=== PATIENT | female | born 1945 | race Caucasian/White ===

== ENCOUNTER 2018-07-16 09:35 | Outpatient (CLI) | payer MEDICARE ==
--- NOTE | 2018-07-16 10:33 | RAD ---
KUB: Date: 07-16-18 Comparison: None. History: Constipation. FINDINGS: Supine imaging is provided, limiting assessment for free air and bowel obstruction. Course calcificat ions in the pelvis suggest calcified uterine fibroids. Bowel gas pattern appears nonobstructed. IMPRESSION: Nonobstructed bowel gas pattern. No obvious large volume stool seen on this examination although eval uation is somewhat limited secondary to paucity of bowel gas. POS: [facility]
[2018-07-16] MEDS ORDERED: Iopamidol 370 76% 50 ML VIAL FS ONE (11:19)
[2018-07-16] MEDS ORDERED: Iopamidol 370 76% 100 ML VIAL ONE (11:19)
--- NOTE | 2018-07-16 16:57 | CT ---
CT ABDOMEN AND PELVIS WITH IV AND ORAL CONTRAST: Date: 07/16/18 HISTORY: Abdomen and pelvic pain. FINDINGS: Right breast prosthesis partially visualized. The left renal collecting system and ureter are moderat camila distended to the distal left ureter where there are two adjacent calcifications, each approximate ly 0.4 cm diameter. The right renal collecting system, ureter, and urinary bladder are decompressed. An additional 0.3 cm calcification at the inferior pole of the left kidney. There are three tiny calc ifications within nondilated calices of the right kidney. Small hiatal hernia. Small cyst left liver lobe. Partially calcified uterine fibroid to the left of m idline is 5.4 cm. No evidence of bowel obstruction. Appendix is not inflamed. There are degenerative changes of the lum bar spine. IMPRESSION: 1. Partial obstruction at two adjacent 4 mm distal left ureteral calculi. 2. Additional smaller bilateral renal calculi. 3. Small hiatal hernia. 4. Large uterine fibroid. POS: [facility]
== END 2018-07-16 09:36 | disposition home or self-care (01) ==
LOC: SCSRAD 09:35 → CT 09:36
PROVIDERS: ATTEND Family Medicine
DX: K59.01 Slow transit constipation (principal); R10.84 Generalized abdominal pain; N20.2 Calculus of kidney with calculus of ureter; K44.9 Diaphragmatic hernia without obstruction or gangrene; D25.9 Leiomyoma of uterus, unspecified
CPT/HCPCS: 74018; 74177; 82565

== ENCOUNTER 2018-07-31 09:47 | Outpatient (CLI) | payer MEDICARE ==
[2018-07-31 10:55] LABS: Hemoglobin 14.3 g/dL (12.0-16.0); Mean Corpuscular HGB CONC 32.9 g/dL (32.0-36.0); Mean Corpuscular Hemoglobin 32.8 pg (27.0-31.0); Mean Corpuscular Volume 99.7 fL (78.0-98.0); Mean Platelet Volume 8.9 fL (7.4-10.4); Platelet Count 251 thou/uL (130-400); RBC Distribution Width 11.1 % (11.5-14.5); Red Blood Cell (RBC) Count 4.36 mill/uL (4.20-5.40)
[2018-07-31 11:00] LABS: Bilirubin Negative (Negative); Blood, Urine Small (Negative); Clarity CLOUDY (Clear); Glucose, Urine (Dipstick) Negative (Negative); Leukocyte Small (Negative); Nitrite Negative (Negative); Protein, Urine (Dipstick) Negative (Neg-Trace); Specific Gravity, Urine 1.013 (1.002-1.036); Urobilinogen 0.2 mg/dL (0.2-1.0); pH, Urine 7.5 (5.0-9.0)
[2018-07-31 11:01] LABS: INR-International Normal Ratio 0.9; Prothrombin Time 12.5 SEC (12.0-14.7)
[2018-07-31 11:02] LABS: Bacteria/HPF None Seen HPF (None Seen); Hyaline Casts/LPF 0-3 HYALINE CAST LPF (0-3 Hyaline); PTT 27.1 SEC (22.9-36.1); Squamous Epithelial 0-3 HPF (0-3); WBC/HPF 0-3 HPF (0-3)
[2018-07-31 11:20] LABS: Anion Gap 14 mmol/L (10-20); BUN (Urea Nitrogen) 14 mg/dL (9.8-20.1); Calc. Creatinine Clearance 0 mL/min (70-130); Calcium 10.9 mg/dL (7.8-10.44); Carbon Dioxide 25 mmol/L (23-31); Chloride 108 mmol/L (98-107); Estimated GFR-MDRD 70; Glucose 97 mg/dL (83-110); Potassium 5.6 mmol/L (3.5-5.1); Sodium 141 mmol/L (136-145)
--- NOTE | 2018-07-31 21:36 | EKG ---
Test Reason : Blood Pressure : / mmHG Vent. Rate : 080 BPM Atrial Rate : 080 BPM P-R Int : 128 ms QRS Dur : 080 ms QT Int : 368 ms P-R-T Axes : 080 075 070 degrees QTc Int : 424 ms Normal sinus rhythm Normal ECG No previous ECGs available Confirmed by JULIA MARTIN, DR. Carlisle ([id number]) on 07/31/2018 9:36:01 PM Referred By: LACEY Confirmed By:DR. Maylin DUMONT MD
== END 2018-07-31 09:48 | disposition home or self-care (01) ==
LOC: LABBT 09:47
PROVIDERS: ATTEND Urology
DX: Z01.818 Encounter for other preprocedural examination (principal); N20.1 Calculus of ureter
CPT/HCPCS: 80048; 81001; 85027; 85610; 85730; 87077; 87086; 87186; 93005; 93010

== ENCOUNTER 2018-08-08 06:03 | Day surgery (SDC) | payer MEDICARE ==
[2018-07-31 09:50] VITALS: BMI 23.3
[2018-08-08 07:46] LABS: Anion Gap 12 mmol/L (10-20); BUN (Urea Nitrogen) 12 mg/dL (9.8-20.1); Calc. Creatinine Clearance 58 mL/min (70-130); Calcium 10.6 mg/dL (7.8-10.44); Carbon Dioxide 26 mmol/L (23-31); Chloride 106 mmol/L (98-107); Estimated GFR-MDRD 65; Glucose 106 mg/dL (83-110); Potassium 4.2 mmol/L (3.5-5.1); Sodium 140 mmol/L (136-145)
[2018-08-08] MEDS ORDERED: Levofloxacin 500 mg/D5W 100 ml Premix Bag ONE (07:52)
[2018-08-08] MEDS ORDERED: Midazolam HCl 2 mg/2 ml Vial ONE (08:09)
--- NOTE | 2018-08-08 08:10 | RAD ---
KUB: History: Pre-operative evaluation. Comparison: 07-16-18 FINDINGS: Small bilateral renal calculi noted. Large heterogeneously calcified uterine fibroid. The two previou sly noted distal left ureteral calculi are probably at the ureterovesicular junction, showing some ad vancement when compared to the 07-16-18 study but difficult to say with certainty because of the heter ogeneously amorphise calcification within the fibroid which at least partially obscures this region. IMPRESSION: Probable two distal left ureteral calculi which are partially obscured by the densely heterogeneously calcified uterine fibroid. Small bilateral renal calculi. POS: [facility]
[2018-08-08] MEDS ORDERED: Fentanyl 100 MCG/2 ML VIAL ONE (08:12)
[2018-08-08] MEDS ORDERED: Phenazopyridine HCl 97.5 MG TABLET ONE ×2 (09:58)
[2018-08-08] MEDS ORDERED: Oxybutynin 5 MG TAB ONE (09:59)
--- NOTE | 2018-08-08 10:22 | RAD ---
RETROGRADE IVP: Comparison: CT abdomen/pelvis 07-16-18. History: Left ureteral calcification. FINDINGS/IMPRESSION: Multiple limited intraoperative fluoroscopic views from a retrograde IVP were submitted for interpret ation. There are multiple calcifications in the pelvis which represent the patient's calcified uterine fibro id. On the initial image, there is a calcification along the wire which is in the left ureter. This m ay represent the distal left ureteral calcification seen on CT. On the lateral images, this is no paul sariah visualized. Eventually, a double J ureteral stent is placed which appears in good position. POS: [facility]
--- NOTE | 2018-08-08 10:40 | OP ---
DATE OF PROCEDURE: 08/08/2018 PRIMARY CARE PHYSICIAN: Erma Garnett MD PREOPERATIVE DIAGNOSES: 1. A 73-year-old female with history of left distal ureteral calculi x2, 4 mm each. 2. Left 3 mm lower pole renal calculi. 3. Right punctate renal lithiasis. 4. Large uterine fibroids. 5. Hypercalcemia, 10.6. POSTOPERATIVE DIAGNOSES: 1. A 73-year-old female with history of left distal ureteral calculi x2, 4 mm each. 2. Left 3 mm lower pole renal calculi. 3. Right punctate renal lithiasis. 4. Large uterine fibroids. 5. Hypercalcemia, 10.6. PROCEDURES PERFORMED: Cystoscopy, left retrograde pyelogram, 6 x 26 double-J ureteral stent placement with Dangler, balloon dilatation of the left intramural ureter, rigid ureteroscopy, laser lithotripsy, basket extraction of stone fragments, pyeloscopy, and laser lithotripsy of renal calculi. ANESTHESIA: General. COMPLICATIONS: None apparent. DISPOSITION: To recovery room in stable condition. SPECIMENS: Stone fragments for chemical analysis. INDICATIONS FOR PROCEDURE AND HISTORY: Ms. Conklin is a pleasant 73-year-old female, G2, P2 with no prior history of kidney stone was referred by primary care. She has left ureteral calculi, bilateral renal lithiasis dimensions as above. She had nonprogression of her stone nidus, with persistent discomfort and desired to proceed with ureteroscopy and laser lithotripsy. Moreover, she has a very large uterus with uterine fibroids that may hinder stone passage as at the level of the obstructing stone. Risks and complications of the procedure were reviewed with her in detail including, but not limited to, bleeding, pain, infection, injury to adjacent organs, urosepsis, stricture formation, possible secondary procedure, PE, and DVT were reviewed. All questions were answered to her satisfaction and she desired to proceed without reservation. DESCRIPTION OF PROCEDURE: After an informed consent was signed, the patient was taken to the operating room, placed in a dorsal lithotomy position with the genital area prepped and draped in the usual surgical sterile fashion. Broad-spectrum antibiotics were provided. Bilateral MAYDA hose SCDs were provided. Genital area was formally prepped and draped. A 21-Monegasque cystoscope was utilized for cystoscopy , which demonstrated normal urethra and bladder. UOs were identified in normal orthotopic position. At this time, a 0.35 Sensor wire was passed into the left UO to the level of the left upper pole. Using a [employer] 4 cm 12-Monegasque balloon, we dilated the intramural ureter. After adequate pressure, balloon was deflated. Rigid ureteroscopy was performed over a safety guidewire in-situ. We visualized the stone as there were multiple in the ureter. Using 200 micron laser fiber, we laser lithotripsied the stone into multiple fragments. She had passive dilatation of the proximal ureter due to obstructing stone. A Zero Tip Nitinol basket was utilized to basket off stone fragments. She appeared to have more stone than was seen on CT. There was a possibility that her left renal lithiasis had migrated distally as well to the level of the obstructing stone. All stone fragments were rendered free and at this time, the ureteroscope was advanced more proximally freeing the proximal ureter above the stone nidus. At this time, a 10-Monegasque dual-lumen access sheath was passed over the safety wire and a retrograde pyelogram was performed opacifying the collecting system. A 0.38 Super Stiff wire was placed into the left upper pole. An 11/13-Monegasque x 28 navigator was passed without difficulty as she was dilated from an obstructing stone. Flexible ureteroscope disposable was passed into the level of the renal collecting system and surveyed. There were some areas of Rehan's plaque; however, I did not see the stone consistent with what is seen on CT. There is a good possibility she may have passed the stone distally and it was already lasered fragmented for the distal stone nidus. There was a tiny fragment in the left upper pole, which I laser lithotripsied. She tolerated the procedure well. The ureter was surveyed demonstrating no evidence of ureteral stone nidus, perforation, or mucosal trauma. A 6 x 26 double-J ureteral stent was passed without difficulty and Dangler was left in situ. Bladder was emptied and the Dangler taped to the patient's pubic symphysis. She will be discharged with Pierson 5/325 #30 one to two p.o. q.6 to 8 hours p.r.n., ciprofloxacin for 5 days, then 1 p.o. prior to stent pull, VESIcare 5 mg 1 p.o. daily, Colace p.r.n., and AZO p.r.n. As she has mild hypercalcemia, I do plan on working this up with PTH stone protocol after convalescence. Job ID: [id number] MTDD
[2018-08-08] MEDS ORDERED: Glycopyrrolate 0.2 MG/ML 5 ML SYRINGE ONE (11:48)
[2018-08-08] MEDS ORDERED: Lidocaine 1% PF 5 ML VIAL ONE (11:48)
[2018-08-08] MEDS ORDERED: Ondansetron PF 4 MG/2 ML Vial ONE (11:48)
[2018-08-08] MEDS ORDERED: PHENYLEPHRINE-NS 100 MCG/ML 10 ML SYRINGE ONE (11:48)
[2018-08-08] MEDS ORDERED: Metoclopramide HCl 10 MG/2 ML VIAL ONE (11:48)
[2018-08-08] MEDS ORDERED: PROPOFOL 200 MG/20 ML VIAL ONE (11:48)
[2018-08-08] MEDS ORDERED: Rocuronium Bromide 10 MG/ML (10ML VIAL) ONE (11:48)
[2018-08-08] MEDS ORDERED: diphenhydrAMINE 50 MG/ML VIAL ONE (11:48)
[2018-08-13 16:12] LABS: CA Oxalate Dihydrate 30 % (.); CA Oxalate Monohydrate 60 % (.); CA Phosphate 10 % (.); Color Tan (.)
== END 2018-08-08 12:55 | disposition home or self-care (01) ==
LOC: SDC 06:03
PROVIDERS: ATTEND Urology
PROC: 0TF78ZZ Fragmentation in Left Ureter, Via Natural or Artificial Opening Endoscopic (ICD-10-PCS; principal; 2018-08-08)
PROC: 0T778DZ Dilation of Left Ureter with Intraluminal Device, Via Natural or Artificial Opening Endoscopic (ICD-10-PCS; 2018-08-08)
DX: N20.2 Calculus of kidney with calculus of ureter (principal); D25.9 Leiomyoma of uterus, unspecified; E83.52 Hypercalcemia; G89.29 Other chronic pain; M54.9 Dorsalgia, unspecified; Z79.899 Other long term (current) drug therapy
CPT/HCPCS: 52356; 74018; 74420; 80048; 82365; 88300; C1758; C1769; 36415; J1200; J1956; J2001; J2250; J2405; J2704; J2765; J3010

== ENCOUNTER 2018-09-07 12:42 | Outpatient (CLI) | payer MEDICARE ==
--- NOTE | 2018-09-07 14:20 | ULT ---
THYROID ULTRASOUND: HISTORY: Goiter. COMPARISON: None. TECHNIQUE: Sagittal and transverse imaging of the thyroid gland is performed. FINDINGS: There is diffuse heterogeneity throughout the thyroid gland. Isthmus measures 0.2 cm. The right thy roid measures 4.2 x 2.0 x 1.8 cm. The left thyroid lobe measures 1.9 x 1.7 x 4.1 cm. There is a hyp erechoic solid nodule in the lower pole of the right thyroid lobe measuring 0.9 x 0.6 x 1.0 cm. Ther e is a solid hypoechoic focus in the mid portion left thyroid lobe with punctate calcification measur ing 1.1 x 1.4 x 1.2 cm. There is a solid nodule in the mid portion of the left thyroid lobe which is hyperechoic measuring 1.5 x 1.7 x 1.1 cm. There is a 2nd smaller solid nodule in the lower pole lef t thyroid lobe measuring 0.9 1.0 x 1.2 cm. IMPRESSION: Multinodular goiter. Based on the TIRADS calcification, the largest nodule in the left thyroid lobe is classified as TR3. Followup imaging in 1 year is recommended. Based upon TIRADS classification, the hypoechoic nodule with calcifications in the mid pole right thyroid lobe is TR4. Followup imagin g in 1 year is recommended. POS: [facility]
== END 2018-09-07 12:43 | disposition home or self-care (01) ==
LOC: SCSULT 12:42
PROVIDERS: ATTEND Family Medicine
DX: E04.2 Nontoxic multinodular goiter (principal)
CPT/HCPCS: 76536